=== PATIENT | female | born 1975 | race Caucasian/White ===

== ENCOUNTER 2020-11-25 17:58 | Emergency (ER) | payer OTHER, SELFPAY ==
--- NOTE | 2020-11-25 18:02 | ED.BACK ---
HPI - Back Pain/Injury General Chief Complaint: Urogenital-Female Stated Complaint: pos kidney stones Time Seen by Provider: 11/25/20 18:02 Source: patient, family and RN notes reviewed History of Present Illness HPI Narrative: Patient is a 44-year-old female who presents the urgent care with her spouse with complaints of severe mid to low back pain that started last night. Patient states that she has a history of kidney stones however the pain presented differently at that time. Patient states that she has had surgery in 2018 for stones but never completed a 7-day urine and is uncertain as to why she was producing stones. Patient states that she was told to increase her water intake and stop eating meat . Patient states that she has a new urologist appointment on Tuesday. Patient states that she is fevers, chills, sweats and dizziness since last night. Patient is taken ibuprofen for the fevers/pain. Patient denies of any urinary symptoms.Patient denies of any groin or abdominal pain. Denies of any nausea or vomiting. States that her urine is cloudy but denies of frequency urgency or pain with urination. Patient denies of any blood in the urine. No other acute complaints. Patient aware of plan of care. Some parts of this dictation were generated by voice recognition software and may contain typographical and/or grammatical inaccuracies. Related Data Home Medications Medication Instructions Recorded Confirmed bupropion HCl PO 11/25/20 drospirenone-ethinyl estradiol tablet 11/25/20 Allergies Allergy/AdvReac Type Severity Reaction Status Date / Time No Known Allergies Allergy Unverified 02/10/16 16:10 Review of Systems Review of Systems: CONSTITUTIONAL: Denies fever, chills, or sweats. EYES: Denies visual changes, redness, or discharge. ENT: Denies rhinorrhea, congestion, sore throat, or otalgia. CARDIOVASCULAR: Denies chest pain, palpitations, or edema. RESPIRATORY: Denies cough or dyspnea. GASTROINTESTINAL: Denies abdominal pain, nausea, vomiting, or diarrhea. GENITOURINARY: Denies dysuria or hematuria. SKIN: Denies rash or itching. MUSCULOSKELETAL: Denies back pain, joint pain, or myalgia. NEUROLOGIC: Denies headache, numbness, or weakness. All other systems reviewed are negative, except as documented in HPI. PMFSH Comments At the time of my signature, I reviewed and agree with the nursing past medical, surgical, social, and family history. There is no relevant family history pertinent to the patient complaint. Exam Narrative: GENERAL: This is a well-nourished, well-developed patient, anxious/frantic and tearful HEAD: normocephalic, atraumatic. EYES: PERRL. Sclera clear/white. Vision is grossly intact. EARS: External ears normal NOSE: External nose normal with no obvious nasal discharge, nares without redness, no rhinorrhea. THROAT: Mucous membranes moist NECK: Neck supple CARDIOVASCULAR: Tachycardic without murmurs, gallops, or rubs. RESPIRATORY: Clear to auscultation. Breath sounds equal bilaterally. No wheezes, rales, or rhonchi. GASTROINTESTINAL: Abdomen soft, non-tender, nondistended. SKIN: warm, intact with no suspicious lesions or rash, good texture and turgor. NEURO: awake, alert, and oriented to person, place and time. There were no obvious focal neurologic abnormalities. EXTREMITIES: No clubbing, cyanosis, or edema. BACK: Mild to moderate bilateral CVA tenderness Course Vital Signs Vital signs: Vital Signs Temperature 98.8 F 11/25/20 18:06 Pulse Rate 129 H 11/25/20 18:06 Respiratory Rate 12 11/25/20 18:06 Blood Pressure 148/85 H 11/25/20 18:06 Pulse Oximetry 100 11/25/20 18:06 Temperature 98.8 F 11/25/20 18:06 Pulse Rate 129 H 11/25/20 18:06 Respiratory Rate 12 11/25/20 18:06 Blood Pressure 148/85 H 11/25/20 18:06 Pulse Oximetry 100 11/25/20 18:06 Reviewed-patient is informed that they may have pre-hypertension or hypertension based on a blood pressure leopoldo
[2020-11-25 18:06] VITALS: BP 148/85; PULSE 129; RESP 12; TEMP 37.1; O2SAT 100
== END 2020-11-25 18:33 | disposition left against medical advice (07) ==
PROVIDERS: Emergency Provider Nurse Practitioner Family
DX: R10.9 Unspecified abdominal pain (principal); F41.9 Anxiety disorder, unspecified; R50.9 Fever, unspecified; Z87.442 Personal history of urinary calculi
CPT/HCPCS: 81003; 99203; G0463

== ENCOUNTER 2022-04-20 08:21 | Emergency (ER) | payer OTHER, SELFPAY ==
[2022-04-20 08:33] VITALS: BP 130/76; PULSE 80; RESP 18; TEMP 36.2; O2SAT 100
--- NOTE | 2022-04-20 08:37 | ED.URI ---
HPI - URI/Sore Throat General Chief Complaint: Upper Respiratory Infection Stated Complaint: sorethroat Time Seen by Provider: 04/20/22 08:37 Source: patient Mode of arrival: ambulatory Limitations: no limitations History of Present Illness HPI Narrative: 46 yo F presents with c/o sore throat that started last night. no other symptoms. Recent exposure to strep from her son. All systems reviewed and negative except as noted above. Related Data Home Medications Medication Instructions Recorded Confirmed bupropion HCl 75 mg tablet 75 mg PO DAILY 11/25/20 04/20/22 drospirenone 3 mg-ethinyl 1 tablet PO DAILY 11/25/20 04/20/22 estradiol 0.02 mg tablet Allergies Allergy/AdvReac Type Severity Reaction Status Date / Time No Known Allergies Allergy Verified 04/20/22 08:23 Review of Systems Review of Systems: CONSTITUTIONAL: Denies fever, chills, or sweats. EYES: Denies visual changes, redness, or discharge. ENT: Denies rhinorrhea, congestion. Reports sore throat. Denies otalgia. CARDIOVASCULAR: Denies chest pain, palpitations, or edema. RESPIRATORY: Denies cough or dyspnea. GASTROINTESTINAL: Denies abdominal pain, nausea, vomiting, or diarrhea. GENITOURINARY: Denies dysuria or hematuria. SKIN: Denies rash or itching. MUSCULOSKELETAL: Denies back pain, joint pain, or myalgia. NEUROLOGIC: Denies headache, numbness, or weakness. PSYCHIATRIC: Denies anxiety or depression. All other systems reviewed are negative, except as documented in HPI. PMFSH Comments At time of signature, agree with nursing past medical, surgical, social and family history. There is no relevant family history pertinent to the presenting complaint. Exam Narrative: GENERAL: This is a well-nourished, well-developed patient, in no apparent distress. HEAD: normocephalic, atraumatic. EYES: PERRL. Sclera clear/white. Vision is grossly intact. EARS: External ears normal, auditory canals clear and without drainage, TMs normal without perforation. Hearing grossly intact. NOSE: External nose normal with no obvious nasal discharge, nares without redness, no rhinorrhea. THROAT: Mucous membranes moist, posterior pharynx erythematous, swelling. no exudates NECK: Neck supple, non-tender with anterior cervical lymphadenopathy. No masses or thyromegaly. CARDIOVASCULAR: Regular rate and rhythm without murmurs, gallops, or rubs. RESPIRATORY: Clear to auscultation. Breath sounds equal bilaterally. No wheezes, rales, or rhonchi. SKIN: warm, Dry, intact with no suspicious lesions or rash, good texture and turgor. NEURO: awake, alert, and oriented to person, place and time. There were no obvious focal neurologic abnormalities. EXTREMITIES: No joint tenderness, effusion, or edema noted. Course Course Level of Care: Express Care Visit Vital Signs Vital signs: Vital Signs Temperature 36.2 C L 04/20/22 08:33 Pulse Rate 80 04/20/22 08:33 Respiratory Rate 18 04/20/22 08:33 Blood Pressure 130/76 04/20/22 08:33 Pulse Oximetry 100 04/20/22 08:33 Oxygen Delivery Room Air 04/20/22 08:33 Temperature 36.2 C L 04/20/22 08:33 Pulse Rate 80 04/20/22 08:33 Respiratory Rate 18 04/20/22 08:33 Blood Pressure 130/76 04/20/22 08:33 Pulse Oximetry 100 04/20/22 08:33 Oxygen Delivery Room Air 04/20/22 08:33 reviewed MDM - URI/Sore Throat MDM Narrative Medical decision making narrative: Patient is aware of diagnosis, understands and agrees to treatment plan. Anticipatory guidance given. Patient agrees to follow-up as directed and is aware of reasons to seek care at the emergency department. Portions of this record may have been created with voice recognition software negative rapid strep test. Will treat patient for strep throat with antibiotic due to symptoms, the of the and recent strep exposure. Differential Diagnosis Differential diagnosis: Likely pharyngitis Lab Data Labs: Strep Screen Presumptive Ne
== END 2022-04-20 08:52 | disposition home or self-care (01) ==
PROVIDERS: Emergency Provider Nurse Practitioner Family
DX: J02.9 Acute pharyngitis, unspecified (principal); Z20.818 Contact with and (suspected) exposure to other bacterial communicable diseases; F41.9 Anxiety disorder, unspecified; F32.A Depression, unspecified
CPT/HCPCS: 87081; 87880; 99213; G0463

== ENCOUNTER 2024-01-18 08:26 | Emergency (ER) | payer OTHER, SELFPAY ==
[2024-01-18 09:30] VITALS: BP 137/83; PULSE 88; RESP 18; TEMP 36.6; O2SAT 99
[2024-01-18 09:59] LABS: EDSTREPNEGPOS1 Negative (Negative)
--- NOTE | 2024-01-18 10:18 | ED_ITS ---
HPI - URI/Sore Throat General Chief Complaint: Upper Respiratory Infection Stated Complaint: strep symptoms Time Seen by Provider: 01/18/24 10:10 Source: patient and RN notes reviewed Mode of arrival: ambulatory Limitations: no limitations History of Present Illness HPI Narrative: Patient presents today with a 2 day history of sore throat and nasal congestion with a one-week history of cough that she states seems to be improving, and bilateral ear clogging since last night. Denies fever or shortness of breath. She currently rates her discomfort 09/16 and has been trying Mucinex, ibuprofen, and Robitussin DM without relief. Related Data Home Medications ?Medication ?Instructions ?Recorded ?Confirmed ?Last Taken ?Type bupropion HCl 75 mg tablet 75 mg PO DAILY 11/25/20 04/20/22 Unknown History drospirenone 3 mg-ethinyl 1 tablet PO DAILY 11/25/20 04/20/22 Unknown History estradiol 0.02 mg tablet hydroxyzine HCl 50 mg tablet mg 01/18/24 Unknown History sertraline 25 mg tablet mg 01/18/24 Unknown History Allergies Allergy/AdvReac Type Severity Reaction Status Date / Time No Known Allergies Allergy Verified 01/18/24 09:33 Review of Systems Review of Systems: CONSTITUTIONAL: Denies body aches, fever, chills, or sweats. EYES: Denies visual changes, redness, or discharge. ENT: Denies rhinorrhea. + sore throat, bilateral ear clogging, nasal congestion CARDIOVASCULAR: Denies chest pain, palpitations, or edema. RESPIRATORY: Denies dyspnea.+ cough GASTROINTESTINAL: Denies abdominal pain, nausea, vomiting, or diarrhea. GENITOURINARY: Denies dysuria or hematuria. SKIN: Denies rash, itching, or wounds. MUSCULOSKELETAL: Denies back pain, joint pain, or myalgia. NEUROLOGIC: Denies headache, numbness, tingling, or weakness. PSYCH: Denies depression or anxiety. PMFSH Comments At time of signature, I have reviewed and agree with nursing past medical, surgical, social and family history unless otherwise noted. Please see nursing chart for further information. There is no relevant family history pertinent to the presenting complaint Exam Narrative: GENERAL: Mildly ill-appearing, well-nourished, and in no acute distress. HEAD: Normocephalic, atraumatic. EYES: EOMI. No redness or drainage. Conjunctivae normal. ENT: Mucous membranes pink and moist. Nares congested. No rhinorrhea. TMs normal bilaterally with mild bilateral serous effusions without evidence of bacterial infection. Throat erythematous without edema or exudate. Uvula midline. NECK: Normal AROM. Supple. Bilateral tonsillar lymphadenopathy CHEST: No respiratory distress. Clear to auscultation. HEART: Regular rate and rhythm. No murmur appreciated. EXTREMITIES: Normal range of motion. No edema. SKIN: Warm, dry, no rash. Capillary refill normal. Normal skin turgor. NEURO: No focal deficits. Alert and oriented x3. Gait steady. PSYCH: Normal affect. No signs of depression or anxiety. Course Course Level of Care: Express Care Visit Vital Signs Vital signs: Vital Signs Temperature 97.8 F 01/18/24 09:30 Pulse Rate 88 01/18/24 09:30 Respiratory Rate 18 01/18/24 09:30 Blood Pressure 137/83 01/18/24 09:30 Pulse Oximetry 99 01/18/24 09:30 Oxygen Delivery Room Air 01/18/24 09:30 Temperature 97.8 F 01/18/24 09:30 Pulse Rate 88 01/18/24 09:30 Respiratory Rate 18 01/18/24 09:30 Blood Pressure 137/83 01/18/24 09:30 Pulse Oximetry 99 01/18/24 09:30 Oxygen Delivery Room Air 01/18/24 09:30 Reviewed MDM - URI/Sore Throat MDM Narrative Medical decision making narrative: Rapid strep negative. Culture pending. Symptoms likely viral in etiology. Discussed [id number] medication use and duration of illness. Patient will be treated with a short course of prednisone to help with symptoms. Anticipatory guidance given. Differential Diagnosis Differential diagnosis: Likely upper respiratory infection, otitis media, sinusitis, viral infection, bronchitis, influenza, pharyngitis and other (COVID- 19, strep throat) Lab Data Attestation: I reviewed the patient's lab results. Labs: Lab Results 01/18/24 Range/Units 09:56 POC Grp A Strep Screen Negative (Negative) Critical Care Time Critical Care Time Critical Care Time: No Discharge Plan Discharge Clinical Impression: Upper respiratory infection Qualifiers: URI type: unspecified URI Qualified Code(s): J06.9 - Acute upper respiratory infection, unspecified Patient Disposition: Home, Self-Care Condition: Stable Instructions: Upper Respiratory Infection (DC) Additional Instructions: Your rapid strep swab was negative today at [facility]. You will be notified in a few days if the culture comes back positive for strep, and appropriate antibiotics will be called in for you at that time. Your symptoms are likely due to a viral illness, which is not treated with antibiotics. Viral symptoms can be present for up to 7-10 days. Take Tylenol or ibuprofen for fever or pain. Consider a decongestant such as Sudafed or an intranasal steroid such as Flonase. Take the prednisone as directed. Rest and stay hydrated. Follow up with your PCP in 5-7 days if symptoms are not improving. Go to the ER immediately if you have any difficulty breathing or swallowing. Your blood pressure was elevated above 120/80 today at Urgent Care. This puts you above the threshold for follow up. Please schedule a followup visit with your personal physician as soon as possible, for further evaluation and treatment. Even blood pressure exceeding 120/80 may indicate pre-hypertension. Patient Language: Tristanian Prescriptions: New prednisone 50 mg tablet 50 mg PO DAILY 5 Days Qty: 5 0RF No Action hydroxyzine HCl 50 mg tablet sertraline 25 mg tablet bupropion HCl 75 mg tablet 75 mg PO DAILY drospirenone-ethinyl estradiol 3-0.02 mg tablet 1 tablet PO DAILY Follow-up/Referrals: Neva,MD Juana [Primary Care Provider] - Time of Disposition: 10:23
== END 2024-01-18 10:29 | disposition home or self-care (01) ==
PROVIDERS: Emergency Provider Nurse Practitioner; PCP Internal Medicine
DX: J06.9 Acute upper respiratory infection, unspecified (principal)
CPT/HCPCS: 87081; 87880; 99213; G0463